=== PATIENT | male | born 1975 | race Caucasian/White ===

== ENCOUNTER 2025-02-05 11:07 | Emergency (ER) | payer OTHER ==
[~2025-02-05] VITALS: Ht 188 cm; Wt 78.5 kg
[~2025-02-05 11:07] MED LIST: ASPI325 PO; CYCL10 PO; HYDACE5 PO; IBUP400 PO; METPRE4DP PO; NAPR500 PO
[2025-02-05 13:05] VITALS: BP 114/77
[2025-02-05] MEDS ORDERED: CEPH500 PO (13:28)
== END 2025-02-05 14:47 ==
LOC: ER 11:07
DX: S61.310A Laceration without foreign body of right index finger with damage to nail, initial encounter (principal); W26.8XXA Contact with other sharp object(s), not elsewhere classified, initial encounter; Z88.5 Allergy status to narcotic agent; F17.200 Nicotine dependence, unspecified, uncomplicated; Z79.899 Other long term (current) drug therapy
CPT/HCPCS: 73140; 99282-25